=== PATIENT | male | born 1975 | race Caucasian/White ===

== ENCOUNTER 2023-10-10 09:49 | Emergency (ER) | payer OTHER, SELFPAY ==
--- NOTE | ~2023-10-10 | CT_ITS ---
EXAMINATION: CT orbit BI w con DATE: 10/10/2023 13:54 INDICATION: Periorbital swelling. TECHNIQUE: Computed tomography (CT) of the orbits was performed with 75 mL Omnipaque 350 intravenous contrast. Automated exposure control and iterative reconstruction technique were employed. The dose-l ength product was 280.25 mGy-cm. COMPARISON: None FINDINGS: There is soft tissue swelling of the frontal scalp. There is an old blowout fracture of med ial wall of left orbit. The extraocular muscles and optic nerves are normal. There is no abnormal orb ital mass. There is mucosal thickening in the paranasal sinuses. There surgical changes of the parana destini sinuses. There is rightward deviation of the nasal septum. No acute fracture. IMPRESSION: 1. Frontal scalp soft tissue swelling. No orbital involvement. 2. Blowout fracture of medial wall of left orbit, likely chronic. Reviewed, dictated and finalized at location A.
[2023-10-10 10:00] VITALS: BP 145/74; PULSE 80; RESP 14; TEMP 36.6; O2SAT 97
--- NOTE | 2023-10-10 12:37 | ED.SKABFB ---
HPI - Skin/Abscess/Foreign Bdy General Chief complaint: Skin/Abscess/Foreign Body Stated complaint: facial and eye swelling Time Seen by Provider: 10/10/23 11:19 History of Present Illness HPI narrative: 47-year-old male with history of RA on methotrexate, hypertension, hyperlipidemia presenting with facial swelling. Patient states that he noticed some swelling in the middle of his forehead last night. He thought it was a boil. Unfortunately the swelling continued to spread and has now spread to around both of his eyes. Denies pain. States it is just a bit uncomfortable. He saw his PCP who recommended he come in for further evaluation. He denies pain with eye movements or difficulty with eye movements. No vision changes. No fevers. No further complaints. Related Data Allergies Allergy/AdvReac Type Severity Reaction Status Date / Time Penicillins Allergy Swelling Verified 10/10/23 10:00 of Lip/Tongue/Throat Tetanus Vaccines and Toxoid Allergy Unknown Verified 10/10/23 11:15 Review of Systems Review of Systems: All systems reviewed & are unremarkable except as noted in HPI and below Exam Narrative: GENERAL: Nontoxic, no acute distress, pleasant cooperative HEAD: Normocephalic, atraumatic. EYES: PERRLA and EOMI. + bilateral periorbital swelling that extends up his forehead; denies pain with extraocular movements, no proptosis ENT: Nares clear, no rhinorrhea or epistaxis. Mucous membranes moist. NECK: Supple. CHEST: No respiratory distress. HEART: Regular rate and rhythm EXTREMITIES: Normal range of motion. No edema. SKIN: Warm, dry, no rash. NEURO: No focal deficits. Alert and oriented x3. PSYCH: Normal mood and affect. Course Vital Signs Vital signs: Vital Signs Temperature 97.8 F 10/10/23 10:00 Pulse Rate 80 10/10/23 10:00 Respiratory Rate 14 10/10/23 10:00 Blood Pressure 145/74 H 10/10/23 10:00 Pulse Oximetry 97 10/10/23 10:00 Temperature 97.8 F 10/10/23 10:00 Pulse Rate 80 10/10/23 10:00 Respiratory Rate 14 10/10/23 10:00 Blood Pressure 145/74 H 10/10/23 10:00 Pulse Oximetry 97 10/10/23 10:00 MDM - Skin/Abscess/Foreign Bdy MDM Narrative Medical decision making narrative: 47-year-old male presenting with facial swelling. Vitals are stable. Exam remarkable for the above. Blood work with white count of 15. CT orbits show no evidence of orbital cellulitis. Will start the patient on Bactrim and cefdinir for preseptal cellulitis. Advised close PCP follow-up. Appropriate return precautions given. Discharged in stable condition. Differential Diagnosis Differential diagnosis: Likely other (Preseptal cellulitis, orbital cellulitis) Medical Records Attestation: I reviewed the patient's medical records. Lab Data Attestation: I reviewed the patient's lab results. 10/10/23 13:44 10/10/23 13:49 Labs: Lab Results 10/10/23 10/10/23 Range/Units 13:44 13:49 WBC 15.1 H (4.5-10.0) K/mm3 RBC 4.14 L (4.6-6.20) M/mm3 Hgb 13.9 L (14.0-18.0) g/dL Hct 40.3 L (42.0-52.0) % MCV 97.3 (80-100) fl MCH 33.6 (26-34) pg MCHC 34.5 (32-36) g/dl RDW 14.4 (11.5-14.5) % Plt Count 264 (150-375) k/mm3 MPV 9.3 (7.4-10.4) fl Immature Gran % (Auto) 0.4 (0-0.5) % Neut % (Auto) 80.2 H (45.5-73.1) % Lymph % (Auto) 12.7 L (18.3-44.2) % Smyth % (Auto) 5.0 (2.6-8.5) % Eos % (Auto) 1.3 (0-4.4) % Baso % (Auto) 0.4 (0.2-1.2) % Lymph # (Auto) 1.92 (0.9-3.2) K/mm3 Smyth # (Auto) 0.8 H (0.1-0.6) K/mm3 Eos # (Auto) 0.2 (0-0.3) K/mm3 Baso # (Auto) 0.1 (0.0-0.1) K/mm3 Abs Immat Gran (auto) 0.06 H (0.00-0.031) K/mm3 Absolute Neuts (auto) 12.1 H (1.3-6.7) K/mm3 Absolute Nucleated RBC 0.000 (0.0-0.012) K/mm3 Nucleated RBC % 0.0 (0.0-0.2) % Sodium 137 (137-145) mmol/L Potassium 3.8 (3.4-5.0) mmol/L Chloride 104 (98-107) mmol/L Carbon Dioxide 26 (22-30)
[2023-10-10] MEDS: KETOROLAC 15 MG/ML VIAL (*BKC) IV PUSH (13:46)
[2023-10-10] MEDS: SODIUM CHLORIDE 0.9% IV 1,000 ML 999 ML IV CONT (13:46)
[2023-10-10 13:51] LABS: Basophils Absolute Auto 0.1 K/mm3 (0.0-0.1); Basophils Percent Auto 0.4 % (0.2-1.2); Eosinophils Absolute Auto 0.2 K/mm3 (0-0.3); Eosinophils Percent Auto 1.3 % (0-4.4); Hematocrit 40.3 % (42.0-52.0); Hemoglobin 13.9 g/dL (14.0-18.0); Immature Granulocyte Absolute 0.06 K/mm3 (0.00-0.031); Immature Granulocyte Percent A 0.4 % (0-0.5); Lymphocytes Absolute Auto 1.92 K/mm3 (0.9-3.2); Lymphocytes Percent Auto 12.7 % (18.3-44.2); Mean Corpuscular HGB Conc 34.5 g/dl (32-36); Mean Corpuscular Hemoglobin 33.6 pg (26-34); Mean Corpuscular Volume 97.3 fl (80-100); Mean Platelet Volume 9.3 fl (7.4-10.4); Monocytes Absolute Auto 0.8 K/mm3 (0.1-0.6); Neutrophils Absolute Auto 12.1 K/mm3 (1.3-6.7); Neutrophils Percent Auto 80.2 % (45.5-73.1); Platelet Count Result 264 k/mm3 (150-375); Red Blood Count 4.14 M/mm3 (4.6-6.20); Red Cell Distribution Width 14.4 % (11.5-14.5); White Blood Count 15.1 K/mm3 (4.5-10.0)
[2023-10-10 13:55] LABS: Estimated CRCL calculation 111 ml/min; Estimated Glomerular Filt Rate > 60
[2023-10-10 14:25] LABS: Anion Gap 7 mmol/L (4-12); Blood Urea Nitrogen 12 mg/dL (9-20); Calcium 8.8 mg/dL (8.4-10.2); Carbon Dioxide 26 mmol/L (22-30); Chloride 104 mmol/L (98-107); Estimated CRCL calculation 136 ml/min; Estimated Glomerular Filt Rate > 60; Glucose 92 mg/dL (65-110); Potassium 3.8 mmol/L (3.4-5.0); Sodium 137 mmol/L (137-145)
[2023-10-10] MEDS: CEFDINIR 300 MG CAPSULE PO (15:37)
[2023-10-10] MEDS: SULFAMETHOXAZOLE/TRIMETHOPRIM 800/160 MG DS TABLET 2 TAB PO (15:37)
== END 2023-10-10 16:21 | disposition home or self-care (01) ==
PROVIDERS: Emergency Provider Emergency Medicine; PCP Family Medicine
DX: L03.213 Periorbital cellulitis (principal); I10 Essential (primary) hypertension; E78.5 Hyperlipidemia, unspecified; M06.9 Rheumatoid arthritis, unspecified; Z79.631 Long term (current) use of antimetabolite agent
CPT/HCPCS: 36415; 70481; 80048; 85025; 96361; 96374; 99284; A9270; J1885; J7030; Q9967